=== PATIENT | female | born 1980 | race African-American/Black ===

== ENCOUNTER 2023-10-29 11:20 | Emergency (ER) | payer BC, SELFPAY ==
[2023-10-29] MEDS ORDERED: predniSONE 20 MG TAB ONE (11:58)
[2023-10-29] MEDS ORDERED: Ibuprofen 800 MG TAB ONE (11:59)
[2023-10-29 12:37] LABS: SARS-CoV-2 NAA Rapid Test Not Detected (NotDetected)
== END 2023-10-29 13:01 | disposition home or self-care (01) ==
LOC: ERS 11:20
DX: J06.9 Acute upper respiratory infection, unspecified (principal); Z20.822 Contact with and (suspected) exposure to COVID-19
CPT/HCPCS: 71045; J7512